=== PATIENT | female | born 1990 | race African-American/Black ===

== ENCOUNTER 2018-01-10 16:02 | Emergency (ER) | payer OTHER ==
[2018-01-10 16:10] VITALS: BP 106/54; PULSE 82; TEMP 98.3; BMI 26.9
--- NOTE | 2018-01-10 16:10 | PDOC ---
Rapid Medical Evaluation Time Seen by Provider: 01/10/18 16:08 Medical Evaluation: Allergies Allergy/AdvReac Type Severity Reaction Status Date / Time Penicillins Allergy Severe Swelling Verified 07/09/16 11:07 01/10/18 16:08 I have performed a brief in-person evaluation of this patient. The patient presents with a chief complaint of: Possible abscess to abd wall, no f/c. Currently on macrobid for uti Pertinent physical exam findings:will defer to FT provider I have ordered the following:nothing The patient will proceed to the ED for further evaluation. 01/10/18 16:10 Discharge Disposition - Diagnosis Abscess - Referrals - Patient Instructions - Post Discharge Activity
--- NOTE | 2018-01-10 16:35 | PDOC ---
History of Present Illness - General Chief Complaint: Wound Stated Complaint: ABSCESS BOIL Time Seen by Provider: 01/10/18 16:08 History Source: Patient Exam Limitations: No Limitations - History of Present Illness Initial Comments: 01/10/18 16:31 Best Contact:[phone] PCP:Dr. Haley Pmhx:N/A Pshx:C section Allergies:NKDA FH:None Social Hx: Ciarettes/ 0 Alcohol/ 0 Drugs/0 LMP:12/23/2017 27-year-old female presents to the emergency department complaining of a bump on her 2 days without fever, chills, nausea/vomiting, abdominal pains , flank pains, urinary symptoms. Patient is currently on Macrobid for her UTI. Past History - Past Medical History Allergies/Adverse Reactions: Allergies Allergy/AdvReac Type Severity Reaction Status Date / Time Penicillins Allergy Severe Swelling Verified 01/10/18 16:10 Home Medications: Ambulatory Orders Ferrous Sulfate [Feosol] 325 mg PO DAILY 07/09/16 Oxycodone HCl/Acetaminophen [Percocet 5-325 mg Tablet -] 1 tab PO Q4H #20 tablet MDD 6 07/09/16 Vit/Iron Fum/Folic AC [ Tablet] 1 tablet PO HS 07/09/16 Anemia: No Asthma: No Cancer: No Cardiac Disorders: No Diabetes: No HTN: No Seizures: No Thyroid Disease: No - Surgical History Abdominal Surgery: Yes (RT FALLOPIAN TUBE S/P ECTOPIC) - Reproductive History (#): 3 Para: 1 Ectopic : Yes (diagnosed 06/25/13) Therapeutic (s) & number: No Spontaneous : 1 - Immunization History Immunization Up to Date: Yes - Suicide/Smoking/Psychosocial Hx Smoking Status: No Smoking History: Never smoked Have you smoked in the past 12 months: No Number of Cigarettes Smoked Daily: 0 Hx Alcohol Use: No Drug/Substance Use Hx: No Substance Use Type: None Hx Substance Use Treatment: No Review of Systems - Review of Systems Able to Perform ROS?: Yes Comments:: 01/10/18 16:32 CONSTITUTIONAL: Absent: fever, chills, diaphoresis, generalized weakness, malaise, loss of appetite HEENT: Absent: rhinorrhea, nasal congestion, throat pain, throat swelling, difficulty swallowing, mouth swelling, ear pain, eye pain, visual Changes CARDIOVASCULAR: Absent: chest pain, loss of consciousness, palpitations, irregular heart rate, peripheral edema RESPIRATORY: Absent: cough, shortness of breath, dyspnea with exertion, orthopnea, wheezing, stridor, hemoptysis GASTROINTESTINAL: Slight soreness to mid c section line Absent: abdominal pain, abdominal distension, nausea, vomiting, diarrhea, constipation, melena, hematochezia GENITOURINARY: Absent: dysuria, frequency, urgency, hesitancy, hematuria, flank pain, genital pain MUSCULOSKELETAL: Absent: myalgia, arthralgia, joint swelling SKIN: Absent: rash, itching, pallor Is the patient limited Slovenian proficient: No *Physical Exam - Vital Signs Last Vital Signs Temp Pulse Resp BP Pulse Ox 98.3 F 82 20 106/54 99 01/10/18 16:08 01/10/18 16:08 01/10/18 16:08 01/10/18 16:08 01/10/18 16:08 - Physical Exam Comments: 01/10/18 16:33 GENERAL: Well developed, well nourished. Awake and alert. No acute distress. CARDIOVASCULAR: Regular rate and rhythm. No murmurs, rubs, or gallops. Distal pulses are 2+ and symmetric. PULMONARY: No evidence of respiratory distress. Lungs clear to auscultation bilaterally. No wheezing, rales or rhonchi. ABDOMINAL: 1cm induration to mid c secion region, Neg drainage/lymphangitis Soft. Non-tender. Non-distended. No rebound or guarding. No organomegaly. Normoactive bowel sounds. MUSCULOSKELETAL Normal range of motion at all joints. No bony deformities or tenderness. No CVA tenderness. EXTREMITIES: No cyanosis. No clubbing. No edema. No calf tenderness. SKIN: Warm and dry. Normal capillary refill. No rashes. No jaundice. *DC/Admit/Observation/Transfer Diagnosis at time of Disposition: Abscess - Discharge Dispostion Disposition: HOME Condition at time of disposition: Stable Decision to Admit order: No - Referrals Referrals: Jamel Hendrickson MD [Staff Physician] - - Patient Instructions Printed Discharge Instructions: DI for Skin Abscess Additional Instructions: Warm compress see a area Take Tylenol Motrin for pain Clindamycin antibiotics until completion Return back to the ER for severe/persistent or worsening symptoms - Post Discharge Activity
== END 2018-01-10 16:49 | disposition home or self-care (01) ==
LOC: JERFT 16:02
DX: L02.211 Cutaneous abscess of abdominal wall (principal)
CPT/HCPCS: 99281-25

== ENCOUNTER 2018-11-22 13:44 | Emergency (ER) | payer OTHER ==
[2018-11-22 13:54] VITALS: BP 103/56; PULSE 89; TEMP 98.2; BMI 26.2
[2018-11-22 14:16] LABS: HCG,QUALITATIVE URINE Negative
[2018-11-22 14:32] LABS: EPI CELLS 1.1 /HPF (0-5); URINE APPEARANCE CLOUDY; URINE BACTERIA 1973.5 /hpf (NEGATIVE); URINE BILIRUBIN NEGATIVE (NEGATIVE); URINE CASTS 117 /hpf (0-8); URINE COLOR YELLOW; URINE GLUCOSE (UA) NEGATIVE (NEGATIVE); URINE KETONE TRACE (NEGATIVE); URINE LEUK ESTERASE 2+ (NEGATIVE); URINE NITRITE NEGATIVE (NEGATIVE); URINE PROTEIN TRACE (NEGATIVE); URINE RBC 94 /hpf (0-4); URINE UROBILINOGEN 0.2 mg/dL (0.2-1.0); URINE WBC 163 /hpf (0-5)
--- NOTE | 2018-11-22 15:25 | PDOC ---
History of Present Illness - General Chief Complaint: Urinary Problem Stated Complaint: URINE PROBLEMS Time Seen by Provider: 11/22/18 14:18 History Source: Patient Exam Limitations: No Limitations Past History - Past Medical History Allergies/Adverse Reactions: Allergies Allergy/AdvReac Type Severity Reaction Status Date / Time Penicillins Allergy Severe Swelling Verified 03/22/18 09:22 Home Medications: Ambulatory Orders Nitrofurantoin Monohyd/M-Cryst [Macrobid -] 100 mg PO BID #14 capsule 11/22/18 Phenazopyridine HCl [Pyridium] 100 mg PO TID #6 tablet 11/22/18 Anemia: No Asthma: No Cancer: No Cardiac Disorders: No COPD: No Diabetes: No HTN: No Seizures: No Thyroid Disease: No - Surgical History Abdominal Surgery: Yes (RT FALLOPIAN TUBE S/P ECTOPIC) - Reproductive History (#): 3 Para: 1 Ectopic : Yes (diagnosed 06/25/13) Therapeutic (s) & number: No Spontaneous : 1 - Immunization History Immunization Up to Date: Yes - Suicide/Smoking/Psychosocial Hx Smoking Status: No Smoking History: Never smoked Have you smoked in the past 12 months: No Number of Cigarettes Smoked Daily: 0 Information on smoking cessation initiated: No Hx Alcohol Use: No Drug/Substance Use Hx: No Substance Use Type: None Hx Substance Use Treatment: No *Physical Exam - Vital Signs Last Vital Signs Temp Pulse Resp BP Pulse Ox 98.2 F 89 18 103/56 L 100 11/22/18 13:53 11/22/18 13:53 11/22/18 13:53 11/22/18 13:53 11/22/18 13:53 - Physical Exam Respiratory/Chest: positive: Lungs Clear, Normal Breath Sounds. negative: Respiratory Distress Cardiovascular: positive: Regular Rhythm, Regular Rate, S1, S2. negative: Murmur Gastrointestinal/Abdominal: positive: Normal Bowel Sounds, Soft. negative: Tender, Distended, Guarding, Rebound Musculoskeletal: negative: CVA Tenderness Neurologic: positive: Alert, Normal Mood/Affect ED Treatment Course - ADDITIONAL ORDERS Additional order review: Laboratory Results 11/22/18 14:00 Urine Color Yellow Urine Appearance Cloudy Urine pH 7.0 Ur Specific [place] 1.021 Urine Protein Trace Urine Glucose (UA) Negative Urine Ketones Trace H Urine Blood 2+ H Urine Nitrite Negative Urine Bilirubin Negative Urine Urobilinogen 0.2 Ur Leukocyte Esterase 2+ H Urine WBC (Auto) 163 Urine RBC (Auto) 94 Urine Casts (Auto) 117 U Pathogenic Cast Auto Wbc cast seen U Epithel Cells (Auto) 1.1 Urine Bacteria (Auto) 1973.5 Urine HCG, Qual Negative Medical Decision Making - Medical Decision Making 28 y/o F with no sig pmh presents with dysuria and increased urinary frequency today. Denies fever, chills, sob, cp, abd pain, n/v, hematuria, unusual vaginal discharge. Is sexually active with 1 partner. Mentions has had UTIs in the past UA positive for infection Prior urine culture 01/2015 notable for E.coli, which was pansensitive Patient allergic to PCN; will start on Macrobid 11/22/18 15:24 *DC/Admit/Observation/Transfer Diagnosis at time of Disposition: UTI (urinary tract infection) Qualifiers: Urinary tract infection type: acute cystitis Hematuria presence: without hematuria Qualified Code(s): N30.00 - Acute cystitis without hematuria - Discharge Dispostion Disposition: HOME Condition at time of disposition: Stable Decision to Admit order: No - Prescriptions Prescriptions: Nitrofurantoin Monohyd/M-Cryst [Macrobid -] 100 mg PO BID #14 capsule Phenazopyridine HCl [Pyridium] 100 mg PO TID #6 tablet - Referrals Referrals: Lori Carl [Primary Care Provider] - 2 Days - Patient Instructions Printed Discharge Instructions: DI for Urinary Tract Infection (UTI) Additional Instructions: Thank you for choosing [facility]. It was a pleasure taking care of you. You were started on antibiotics for urine infection Drink at least 2L of water daily You were also started on medication for bladder pain called Pyridium - this medication can cause discoloration of your urine. Follow-up with your doctor in 2-3 days Return to the Emergency Department if your symptoms worsen or persist or have other concerning symptoms. - Post Discharge Activity
== END 2018-11-22 15:46 | disposition home or self-care (01) ==
LOC: JERFT 13:44
DX: N30.00 Acute cystitis without hematuria (principal)
CPT/HCPCS: 81003; 84703; 87086; 87186; 99281-25

== ENCOUNTER 2019-03-01 23:13 | Emergency (ER) | payer OTHER ==
[2019-03-01 23:28] VITALS: BP 100/60; PULSE 68; TEMP 98.2
== END 2019-03-02 00:49 | disposition left against medical advice (07) ==
LOC: JER 23:13
DX: Z53.21 Procedure and treatment not carried out due to patient leaving prior to being seen by health care provider (principal)
CPT/HCPCS: 99281-25

== ENCOUNTER 2019-04-06 17:29 | Emergency (ER) | payer OTHER | END 2019-04-06 18:17 | disposition home or self-care (01) | LOC: JERFT 17:29 ==

== ENCOUNTER 2019-05-08 17:17 | Emergency (ER) | payer SELFPAY ==
[2019-05-08 17:24] VITALS: BP 104/61; PULSE 68; TEMP 98.1; BMI 26.5
--- NOTE | 2019-05-08 17:24 | PDOC ---
Rapid Medical Evaluation Medical Evaluation: Allergies Allergy/AdvReac Type Severity Reaction Status Date / Time Penicillins Allergy Severe Swelling Verified 03/22/18 09:22 05/08/19 17:21 Patient presents to ED with complaints of: epigastric pain x 1 month , unrelieved with prilosec, worse at night, no etoh or smoking hx patient on brief exam: epigastric tenderness, no ruq tenderness, vss Patient ordered for: labs, urine, meds Patient to proceed to the ED Discharge Disposition - Diagnosis GERD (gastroesophageal reflux disease) Qualifiers: Esophagitis presence: without esophagitis Qualified Code(s): K21.9 - Gastro- esophageal reflux disease without esophagitis - Discharge Dispostion Disposition: HOME Condition at time of disposition: Stable - Prescriptions Prescriptions: Famotidine [Pepcid -] 20 mg PO DAILY #30 tablet Pantoprazole Sodium [Protonix] 40 mg PO DAILY #30 tablet.dr - Referrals Referrals: Donnell Patterson MD [Staff Physician] - - Patient Instructions Printed Discharge Instructions: DI for Gastroesophageal Reflux Disease (GERD) Additional Instructions: Please take medications as prescribed. As discussed, pleaes follow up with the [facility] within the next week for further evaluation of your continued symptoms. If you develop any fever, chills, nausea, vomiting, diarrhea, or any new or worsening symptoms, please return to the ER immediately. - Post Discharge Activity
[2019-05-08 18:07] LABS: BASO % 1.4 % (0-2.0); EOS % 6.4 % (0-4.5); HEMATOCRIT 35.6 % (32.4-45.2); HEMOGLOBIN 11.9 GM/dL (10.7-15.3); MCH 32.8 pg (25.7-33.7); MCHC 33.3 g/dl (32.0-36.0); MEAN CELL VOLUME 98.4 fl (80-96); MEAN PLT VOLUME 9.7 fl (7.5-11.1); NEUT % 40.2 % (42.8-82.8); PLATELET COUNT 250 K/MM3 (134-434); RBC 3.62 M/mm3 (3.60-5.2); RDW 13.1 % (11.6-15.6); WHITE BLOOD COUNT 4.2 K/mm3 (4.0-10.0)
[2019-05-08 18:09] LABS: URINE APPEARANCE CLEAR; URINE BILIRUBIN NEGATIVE (NEGATIVE); URINE COLOR YELLOW; URINE GLUCOSE (UA) NEGATIVE (NEGATIVE); URINE KETONE NEGATIVE (NEGATIVE); URINE LEUK ESTERASE NEGATIVE (NEGATIVE); URINE NITRITE NEGATIVE (NEGATIVE); URINE PROTEIN NEGATIVE (NEGATIVE); URINE UROBILINOGEN 0.2 mg/dL (0.2-1.0)
[2019-05-08 18:41] LABS: ALBUMIN 3.8 g/dl (3.4-5.0); BILIRUBIN,TOTAL 0.3 mg/dL (0.2-1); BLOOD UREA NITROGEN 16.7 mg/dL (7-18); CALCIUM 8.7 mg/dL (8.5-10.1); CREATININE 0.8 mg/dL (0.55-1.3); POTASSIUM 3.9 mmol/L (3.5-5.1); TOT PROT 7.6 g/dl (6.4-8.2)
--- NOTE | 2019-05-08 19:23 | PDOC ---
History of Present Illness - General Chief Complaint: Pain Stated Complaint: EPIGASTRIC PAIN Time Seen by Provider: 05/08/19 17:24 - History of Present Illness Initial Comments: 05/08/19 19:21 CHIEF COMPLAINT: abdominal pain HISTORY OF PRESENT ILLNESS: 29 yo F with hx of GERD presents to ED with abdominal pain. Patient reports that she has had the pain for 4 months and has was taking omeprazole prescribed by her PMD for 1.5 months. She states she stopped taking it last week because it was not working. Denies any recent travel. Denies N/V/D. Reports last BM yesterday. LMP April 17. . Tried taking acidophilus. No recent travel or sick contacts. PAST MEDICAL HISTORY: Denies past medical history FAMILY HISTORY: Denies SOCIAL HISTORY: Denies tobacco, alcohol, illicit drug use. SURGICAL HISTORY: Denies ALLERGIES: PCN REVIEW OF SYSTEMS General/Constitutional: Denies fever or chills. Denies weakness, weight change. HEENT: Denies change in vision. Denies ear pain or discharge. Denies sore throat. Cardiovascular: Denies chest pain or shortness of breath. Respiratory: Denies cough, wheezing, or hemoptysis. Gastrointestinal:Abdominal pain. Denies nausea, vomiting, diarrhea or constipation. Denies rectal bleeding. Genitourinary: Denies dysuria, frequency, or change in urination. Musculoskeletal: Denies joint or muscle swelling or pain. Denies neck or back pain. Skin and breasts: Denies rash or easy bruising. Neurologic: Denies headache, vertigo, loss of consciousness, or loss of sensation. Psychiatric: Denies depression or anxiety. PHYSICAL EXAM General Appearance: Well-appearing, appropriately dressed. No apparent distress. HEENT: EOMI, PERRLA, normal ENT inspection, normal voice, TMs normal, pharynx normal. No conjunctival pallor. No photophobia, scleral icterus. Neck: Supple. Trachea midline. No tenderness, rigidity, carotid bruit, stridor , lymphadenopathy, or thyromegaly. Respiratory/Chest: Lungs CTAB. No shortness of breath, chest tenderness, respiratory distress, accessory muscle use. No crackles, rales, rhonchi, stridor , wheezing, dullness Cardiovascular: RRR. S1, S2. No JVD, murmur, bradycardia, tachycardia. Vascular Pulses: Dorsalis-Pedis (R): 2+, Dorsalis-Pedis (L): 2+ Gastrointestinal/Abdominal: Minimal epigastric tenderness. No organomegaly, pulsatile mass, hernia, hepatomegaly, splenomegaly. Musculoskeletal/Extremities: Normal inspection. FROM of all extremities, normal capillary refill. Pelvis Stable. No CVA tenderness. No tenderness to extremities, pedal edema, swelling, erythema or deformity. Integumentary: Appropriate color, dry, warm. No cyanosis, erythema, jaundice or rash Neurologic: director of placement II-XII intact. Fully oriented, alert. Appropriate mood/affect. Motor strength 5/5. No appreciable EOM palsy, facial droop or sensory deficit. Past History - Past Medical History Allergies/Adverse Reactions: Allergies Allergy/AdvReac Type Severity Reaction Status Date / Time Penicillins Allergy Severe Swelling Verified 05/08/19 17:24 Home Medications: Ambulatory Orders Nitrofurantoin Monohyd/M-Cryst [Macrobid -] 100 mg PO BID #14 capsule 11/22/18 Phenazopyridine HCl [Pyridium] 100 mg PO TID #6 tablet 11/22/18 Cyclobenzaprine HCl [Flexeril 10 mg] 10 mg PO HS PRN #10 tablet 04/06/19 Ibuprofen [Motrin -] 600 mg PO TID #30 tablet 04/06/19 Famotidine [Pepcid -] 20 mg PO DAILY #30 tablet 05/08/19 Pantoprazole Sodium [Protonix] 40 mg PO DAILY #30 tablet. 05/08/19 Anemia: No Asthma: No Cancer: No Cardiac Disorders: No COPD: No Diabetes: No HTN: No Seizures: No Thyroid Disease: No - Surgical History Abdominal Surgery: Yes (RT FALLOPIAN TUBE S/P ECTOPIC) - Reproductive History (#): 3 Para: 1 Ectopic : Yes (diagnosed 06/25/13) Therapeutic (s) & number: No Spontaneous : 1 - Immunization History Immunization Up to Date: Yes - Suicide/Smoking/Psychosocial Hx Smoking Status: No Smoking History: Never smoked Have you smoked in the past 12 months: No Number of Cigarettes Smoked Daily: 0 Information on smoking cessation initiated: No Hx Alcohol Use: No Drug/Substance Use Hx: No Substance Use Type: None Hx Substance Use Treatment: No *Physical Exam - Vital Signs Last Vital Signs Temp Pulse Resp BP Pulse Ox 98.1 F 68 18 104/61 99 05/08/19 17:22 05/08/19 17:22 05/08/19 17:22 05/08/19 17:22 05/08/19 17:22 ED Treatment Course - LABORATORY CBC & Chemistry Diagram: 05/08/19 17:49 05/08/19 17:49 - ADDITIONAL ORDERS Additional order review: Laboratory Results 05/08/19 05/08/19 05/08/19 17:49 17:49 17:49 Sodium 139 Potassium 3.9 Chloride 105 Carbon Dioxide 30 Anion Gap 3 L BUN 16.7 Creatinine 0.8 Est GFR (CKD-EPI)AfAm 116.28 Est GFR (CKD-EPI)NonAf 100.33 Random Glucose 82 Calcium 8.7 Total Bilirubin 0.3 AST 12 L ALT 24 Alkaline Phosphatase 58 Total Protein 7.6 Albumin 3.8 Lipase 198 Urine Color Yellow Urine Appearance Clear Urine pH 6.0 Ur Specific [place] 1.027 Urine Protein Negative Urine Glucose (UA) Negative Urine Ketones Negative Urine Blood Negative Urine Nitrite Negative Urine Bilirubin Negative Urine Urobilinogen 0.2 Ur Leukocyte Esterase Negative Urine HCG, Qual Negative 05/08/19 17:49 RBC 3.62 MCV 98.4 H MCHC 33.3 RDW 13.1 D MPV 9.7 Neutrophils % 40.2 L D Lymphocytes % 40.0 D Monocytes % 12.0 H Eosinophils % 6.4 H D Basophils % 1.4 Medical Decision Making - Medical Decision Making 05/09/19 01:31 29 yo F presents to ED with abdominal pain x "4 months." -labs unremarkable protonix, pepcid. f/u with GI. Advised patient to take meds as prescribed and to f/u with GI for further evaluation of chronic abd pain. Patient verbalized understanding and agrees to plan. *DC/Admit/Observation/Transfer Diagnosis at time of Disposition: GERD (gastroesophageal reflux disease) Qualifiers: Esophagitis presence: without esophagitis Qualified Code(s): K21.9 - Gastro- esophageal reflux disease without esophagitis - Discharge Dispostion Disposition: HOME Condition at time of disposition: Stable Decision to Admit order: No - Prescriptions Prescriptions: Famotidine [Pepcid -] 20 mg PO DAILY #30 tablet Pantoprazole Sodium [Protonix] 40 mg PO DAILY #30 tablet.dr - Referrals Referrals: Donnell Patterson MD [Staff Physician] - - Patient Instructions Printed Discharge Instructions: DI for Gastroesophageal Reflux Disease (GERD) Additional Instructions: Please take medications as prescribed. As discussed, pleaes follow up with the [facility] within the next week for further evaluation of your continued symptoms. If you develop any fever, chills, nausea, vomiting, diarrhea, or any new or worsening symptoms, please return to the ER immediately. - Post Discharge Activity
== END 2019-05-08 19:35 | disposition home or self-care (01) ==
LOC: JER 17:17
DX: K21.9 Gastro-esophageal reflux disease without esophagitis (principal)
CPT/HCPCS: 36415; 80053; 81003; 83690; 84703; 85025; 99282-25

== ENCOUNTER 2019-06-04 10:09 | Emergency (ER) | payer OTHER ==
[2019-06-04 10:16] VITALS: BP 105/67; PULSE 69; TEMP 98.7; BMI 25.6
[2019-06-04] MEDS ORDERED: SODIUM CHLORIDE 1,000 ML IV STA (11:37)
--- NOTE | 2019-06-04 11:37 | PDOC ---
History of Present Illness - General Chief Complaint: Pain Stated Complaint: HEADACHES/ UTI SYMPTOMS Time Seen by Provider: 06/04/19 11:11 History Source: Patient Exam Limitations: Clinical Condition - History of Present Illness Initial Comments: 06/04/19 11:50 Patient with past medical history of gastritis presented with complaint of 2- day history of epigastric abdominal pain and headache with 2 episodes of vomiting yesterday. Patient reported no vomiting today. Patient report she was on famotidine daily for gastritis but was told by her PCP to stop so she taken to blood work on her a few days which she stopped 4 days ago. Patient reports she started having epigastric pain after stopping the medication. Denies diarrhea, constipation, bloody stool, hematuria, urinary frequency or dysuria. Denies blurry vision or change in vision. Patient reported headache as frontal throbbing headache like a migraine. Denies any other symptoms Is this a multiple visit Asthma Patient?: No Timing/Duration: other (2 days) Past History - Past Medical History Allergies/Adverse Reactions: Allergies Allergy/AdvReac Type Severity Reaction Status Date / Time Penicillins Allergy Severe Swelling Verified 06/04/19 10:13 Home Medications: Ambulatory Orders Nitrofurantoin Monohyd/M-Cryst [Macrobid -] 100 mg PO BID #14 capsule 11/22/18 Phenazopyridine HCl [Pyridium] 100 mg PO TID #6 tablet 11/22/18 Cyclobenzaprine HCl [Flexeril 10 mg] 10 mg PO HS PRN #10 tablet 04/06/19 Ibuprofen [Motrin -] 600 mg PO TID #30 tablet 04/06/19 Famotidine [Pepcid -] 20 mg PO DAILY #30 tablet 05/08/19 Pantoprazole Sodium [Protonix] 40 mg PO DAILY #30 tablet. 05/08/19 Anemia: No Asthma: No Cancer: No Cardiac Disorders: No COPD: No Diabetes: No HTN: No Seizures: No Thyroid Disease: No - Surgical History Abdominal Surgery: Yes (RT FALLOPIAN TUBE S/P ECTOPIC) - Reproductive History (#): 3 Para: 1 Ectopic : Yes (diagnosed 06/25/13) Therapeutic (s) & number: No Spontaneous : 1 - Immunization History Immunization Up to Date: Yes - Psycho Social/Smoking Cessation Hx Smoking Status: No Smoking History: Never smoked Have you smoked in the past 12 months: No Number of Cigarettes Smoked Daily: 0 Information on smoking cessation initiated: No Hx Alcohol Use: No Drug/Substance Use Hx: No Substance Use Type: None Hx Substance Use Treatment: No Review of Systems - Review of Systems Able to Perform ROS?: Yes Is the patient limited Syriac proficient: No Constitutional: No: Chills, Fever, Malaise HEENTM: No: Symptoms Reported, See HPI, Eye Pain, Blurred Vision, Tearing, Recent change in vision, Double Vision, Cataracts, Ear Pain, Ocular Prothesis, Ear Discharge, Nose Pain, Nose Congestion, Tinnitus, Nose Bleeding, Hearing Loss , Throat Pain, Throat Swelling, Mouth Pain, Dental Problems, Difficulty Swallowing, Mouth Swelling, Other Respiratory: No: Symptoms reported, See HPI, Cough, Orthopnea, Shortness of Breath, SOB with Exertion, SOB at Rest, Stridor, Wheezing, Productive cough, Hemoptysis, Other Cardiac (ROS): No: Symptoms Reported, See HPI, Chest Pain, Edema, Irregular Heart Rate, Lightheadedness, Palpitations, Syncope, Chest Tightness, Other ABD/GI: Yes: Symptoms Reported, See HPI, Nausea, Vomiting, Abdominal cramping ( epigastric pain). No: Abd. Pain w/ defecation, Blood Streaked Bowels, Constipated, Diarrhea, Difficulty Swallowing, Poor Appetite, Poor Fluid Intake, Rectal Bleeding, Indigestion : No: Symptoms Reported, Burning, Dysuria, Discharge, Frequency, Urgency Integumentary: No: Symptoms Reported Neurological: Yes: Symptoms reported, Headache. No: Numbness, Paresthesia, Weakness, Dizziness All Other Systems: Reviewed and Negative *Physical Exam - Vital Signs Last Vital Signs Temp Pulse Resp BP Pulse Ox 98.7 F 69 18 105/67 99 06/04/19 10:14 06/04/19 10:14 06/04/19 10:14 06/04/19 10:14 06/04/19 10:14 - Physical Exam Comments: 06/04/19 11:47 GENERAL: Well developed, well nourished. Awake and alert. No acute distress. HEENT: Normocephalic, atraumatic. PERRLA, EOMI. No conjunctival pallor. Sclera are non- icteric. Moist mucous membranes. Oropharynx is clear. NECK: Supple. Full ROM. No JVD. No thyromegaly. No lymphadenopathy. CARDIOVASCULAR: Regular rate and rhythm. No murmurs, rubs, or gallops. Distal pulses are 2+ and symmetric. PULMONARY: No evidence of respiratory distress. Lungs clear to auscultation bilaterally. No wheezing, rales or rhonchi. ABDOMINAL: Soft. mild tenderness to epigastric region. Non-distended. No rebound or guarding. No organomegaly. Normoactive bowel sounds. MUSCULOSKELETAL Normal range of motion at all joints. No bony deformities or tenderness. No CVA tenderness. SKIN: Warm and dry. Normal capillary refill. No rashes. No jaundice. NEUROLOGICAL: Alert, awake, appropriate. Cranial nerves 2-12 intact. No deficits to light touch in face, upper extremities and lower extremities. No motor deficits in the in face, upper extremities and lower extremities. Normal speech. Gait is normal without ataxia. PSYCHIATRIC: Cooperative. Good eye contact. Appropriate mood and affect. General Appearance: Yes: Nourished, Appropriately Dressed. No: Apparent Distress ED Treatment Course - LABORATORY CBC & Chemistry Diagram: 06/04/19 11:37 06/04/19 11:37 Medical Decision Making - Medical Decision Making 06/04/19 11:51 Patient with past medical history of gastritis presented with complaint of 2- day history of epigastric abdominal pain and headache with 2 episodes of vomiting yesterday. Patient reported no vomiting today. Patient report she was on famotidine daily for gastritis but was told by her PCP to stop so she taken to blood work on her a few days which she stopped 4 days ago. Patient reports she started having epigastric pain after stopping the medication. Denies diarrhea, constipation, bloody stool, hematuria, urinary frequency or dysuria. Denies blurry vision or change in vision. Patient reported headache as frontal throbbing headache like a migraine. Denies any other symptoms Exam significant for mild tenderness to epigastric region without guarding or rebound. Normal neuro exam. Symptoms likely gastritis with migraine versus cholecystitis. CBC, CMP and lipase level ordered. Abdominal ultrasound ordered to rule out cholecystitis. IV fluid normal saline 1 L ordered for hydration. Tylenol 1 g IV ordered for pain and headache. Treat based on lab and imaging results 06/04/19 14:13 CBC CMP and lipase labs are unremarkable. Abdominal ultrasound shows Small nonobstructing gallstones with no evidence of cholecystitis. Patient feels better after IV hydration, IV Tylenol and IV Pepcid. Patient reported headache is resolved. Patient wanted to go home in stable for discharge with GI follow- up for gastritis and general surgery for gallstone. Patient stable for discharge Discharge - Discharge Information Problems reviewed: Yes Clinical Impression/Diagnosis: Gastritis Qualifiers: Gastritis type: unspecified gastritis Chronicity: chronic Gastritis bleeding: without bleeding Qualified Code(s): K29.50 - Unspecified chronic gastritis without bleeding Abdominal pain Qualifiers: Abdominal location: epigastric Qualified Code(s): R10.13 - Epigastric pain Nausea and vomiting Qualifiers: Vomiting type: unspecified Vomiting Intractability: non-intractable Qualified Code(s): R11.2 - Nausea with vomiting, unspecified Condition: Improved Disposition: HOME - Admission No - Follow up/Referral Referrals: Marissa Yadav [Primary Care Provider] - - Patient Discharge Instructions Patient Printed Discharge Instructions: DI for Gastroesophageal Reflux Disease (GERD) Additional Instructions: The blood work was normal. Your abdominal ultrasound shows small gallstones with no gallblader disease or infection which needs follow-up. Your symptoms likely caused by gastritis with gallstones. Take home famotidine medication daily as prescribed and follow-up referred to GI doctor for follow-up care for gastritis. Come back to emergency room if worsening abdominal pain with vomiting and fever. - Post Discharge Activity Work/Back to School Note: Back to Work, Back to School
[2019-06-04 11:49] LABS: BASO % 0.8 % (0-2.0); HEMATOCRIT 34.4 % (32.4-45.2); HEMOGLOBIN 11.8 GM/dL (10.7-15.3); LYMPH % 27.3 % (8-40); MCH 33.1 pg (25.7-33.7); MCHC 34.4 g/dl (32.0-36.0); MEAN CELL VOLUME 96.5 fl (80-96); MEAN PLT VOLUME 9.6 fl (7.5-11.1); MONO % 9.9 % (3.8-10.2); PLATELET COUNT 245 K/MM3 (134-434); RBC 3.57 M/mm3 (3.60-5.2); RDW 12.7 % (11.6-15.6); WHITE BLOOD COUNT 4.7 K/mm3 (4.0-10.0)
[2019-06-04] MEDS ORDERED: ACETAMINOPHEN 1000 MG/100 ML VIAL (NON FORMULARY) IVPB ONE (11:53)
[2019-06-04] MEDS ORDERED: ACETAMINOPHEN INJECTION 100 ML IVPB ONE (11:59)
[2019-06-04] MEDS ORDERED: FAMOTIDINE 20 MG/50 ML IVPB 20 MG/50 ML MG IVPB ONE ×2 (12:06→12:10)
[2019-06-04 12:36] LABS: ALBUMIN 3.8 g/dl (3.4-5.0); BILIRUBIN,TOTAL 0.4 mg/dL (0.2-1); BLOOD UREA NITROGEN 14.3 mg/dL (7-18); CALCIUM 8.3 mg/dL (8.5-10.1); CREATININE 0.7 mg/dL (0.55-1.3); POTASSIUM 3.5 mmol/L (3.5-5.1)
[2019-06-04 12:51] LABS: PH,URINE 5.5 (5.0-8.0); URINE APPEARANCE CLEAR; URINE BILIRUBIN NEGATIVE (NEGATIVE); URINE COLOR YELLOW; URINE GLUCOSE (UA) NEGATIVE (NEGATIVE); URINE KETONE 2+ (NEGATIVE); URINE LEUK ESTERASE NEGATIVE (NEGATIVE); URINE NITRITE NEGATIVE (NEGATIVE); URINE PROTEIN TRACE (NEGATIVE)
== END 2019-06-04 14:49 | disposition home or self-care (01) ==
LOC: JER 10:09
PROC: 3E0337Z Introduction of Electrolytic and Water Balance Substance into Peripheral Vein, Percutaneous Approach (ICD-10-PCS; principal; 2019-06-04)
PROC: 3E033GC Introduction of Other Therapeutic Substance into Peripheral Vein, Percutaneous Approach (ICD-10-PCS; 2019-06-04)
PROC: 3E033NZ Introduction of Analgesics, Hypnotics, Sedatives into Peripheral Vein, Percutaneous Approach (ICD-10-PCS; 2019-06-04)
DX: K29.50 Unspecified chronic gastritis without bleeding (principal); K80.20 Calculus of gallbladder without cholecystitis without obstruction; Z88.0 Allergy status to penicillin
CPT/HCPCS: 36415; 76705-TC; 80053; 81003; 83690; 84703; 85025; 87086; 96361; 96365; 96375; 99281-25; J0131; J7030

== ENCOUNTER 2019-09-27 08:35 | Emergency (ER) | payer OTHER ==
[2019-09-27 08:51] VITALS: BMI 26.9
[2019-09-27] MEDS ORDERED: IBUPROFEN 400 MG TABLET (FP) PO ONE ×2 (09:46→09:56)
--- NOTE | 2019-09-27 10:05 | PDOC ---
History of Present Illness - General Chief Complaint: Cold Symptoms Stated Complaint: COLD SYMPTOMS Time Seen by Provider: 09/27/19 09:22 History Source: Patient - History of Present Illness Timing/Duration: reports: yesterday Past History - Past Medical History Allergies/Adverse Reactions: Allergies Allergy/AdvReac Type Severity Reaction Status Date / Time Penicillins Allergy Severe Swelling Verified 09/27/19 08:48 Home Medications: Ambulatory Orders Nitrofurantoin Monohyd/M-Cryst [Macrobid -] 100 mg PO BID #14 capsule 11/22/18 Phenazopyridine HCl [Pyridium] 100 mg PO TID #6 tablet 11/22/18 Cyclobenzaprine HCl [Flexeril 10 mg] 10 mg PO HS PRN #10 tablet 04/06/19 Ibuprofen [Motrin -] 600 mg PO TID #30 tablet 04/06/19 Famotidine [Pepcid -] 20 mg PO DAILY #30 tablet 05/08/19 Pantoprazole Sodium [Protonix] 40 mg PO DAILY #30 tablet. 05/08/19 Anemia: No Asthma: No Cancer: No Cardiac Disorders: No COPD: No Diabetes: No HTN: No Seizures: No Thyroid Disease: No - Surgical History Abdominal Surgery: Yes (RT FALLOPIAN TUBE S/P ECTOPIC) - Reproductive History (#): 3 Para: 1 Ectopic : Yes (diagnosed 06/25/13) Therapeutic (s) & number: No Spontaneous : 1 - Immunization History Immunization Up to Date: Yes - Psycho Social/Smoking Cessation Hx Smoking Status: No Smoking History: Never smoked Have you smoked in the past 12 months: No Number of Cigarettes Smoked Daily: 0 Hx Alcohol Use: No Drug/Substance Use Hx: No Substance Use Type: None Hx Substance Use Treatment: No Review of Systems - Review of Systems Constitutional: Yes: Chills, Malaise Respiratory: No: Cough, Shortness of Breath ABD/GI: No: Blood Streaked Bowels, Diarrhea, Nausea, Vomiting, Abdominal cramping : No: Dysuria Musculoskeletal: Yes: Back Pain Neurological: Yes: Headache *Physical Exam - Vital Signs Last Vital Signs Temp Pulse Resp BP Pulse Ox 99.7 F H 105 H 18 100/60 99 09/27/19 08:48 09/27/19 08:48 09/27/19 08:48 09/27/19 08:48 09/27/19 08:48 - Physical Exam General Appearance: Yes: Appropriately Dressed. No: Apparent Distress HEENT: positive: Normal ENT Inspection, Normal Voice, TMs Normal, Pharynx Normal. negative: Scleral Icterus (R), Scleral Icterus (L) Neck: positive: Supple Respiratory/Chest: negative: Respiratory Distress Gastrointestinal/Abdominal: positive: Soft. negative: Tender Integumentary: positive: Dry, Warm Neurologic: positive: Fully Oriented, Alert, Normal Mood/Affect Medical Decision Making - Medical Decision Making 09/27/19 09:54 29-year-old female, no significant history, here with generalized body pain including lower back with malaise and chills x2 days. No cough, sore throat, ear pain, abdominal pain, change in bowel movement, dysuria, nausea or vomiting. see exam Possible viral illness, r/o flu, pyelo considered given ? L CVAT -Dose of motrin for pain/low grade fever -flu swab -ua/cx 09/27/19 10:50 Flu and strep neg. Improved w/ meds. Dc w/ supportive tx Discharge - Discharge Information Problems reviewed: Yes Clinical Impression/Diagnosis: Viral syndrome Condition: Improved Disposition: HOME - Follow up/Referral - Patient Discharge Instructions Patient Printed Discharge Instructions: DI for Viral Syndrome Additional Instructions: Flu and urine test were negative Rest drink plenty fluids and take Motrin or Tylenol for pain and or fever - Post Discharge Activity Work/Back to School Note: Back to Work
[2019-09-27 10:38] LABS: URINE APPEARANCE CLOUDY; URINE BILIRUBIN NEGATIVE (NEGATIVE); URINE COLOR YELLOW; URINE GLUCOSE (UA) NEGATIVE (NEGATIVE); URINE KETONE 1+ (NEGATIVE); URINE LEUK ESTERASE NEGATIVE (NEGATIVE); URINE NITRITE NEGATIVE (NEGATIVE); URINE PROTEIN TRACE (NEGATIVE)
[2019-09-27 10:53] VITALS: BP 108/70; PULSE 97; TEMP 99.1
== END 2019-09-27 10:53 | disposition home or self-care (01) ==
LOC: JERFT 08:35
DX: B34.9 Viral infection, unspecified (principal); Z88.0 Allergy status to penicillin
CPT/HCPCS: 81003; 87086; 87804; 99283-25

== ENCOUNTER 2019-10-29 10:03 | Emergency (ER) | payer OTHER ==
[2019-10-29 10:25] VITALS: BP 109/62; PULSE 75; TEMP 98.6; BMI 26.6
[2019-10-29] MEDS ORDERED: PANTOPRAZOLE SODIUM 40 MG VIAL IVPUSH ONE (10:56)
[2019-10-29] MEDS ORDERED: SODIUM CHLORIDE 1,000 ML IV STA (10:57)
[2019-10-29] MEDS ORDERED: PANTOPRAZOLE SODIUM 40 MG/100 ML BAG IVPB ONE (11:18)
--- NOTE | 2019-10-29 12:15 | PDOC ---
History of Present Illness - General Chief Complaint: Pain Stated Complaint: UPPER ABD PAIN Time Seen by Provider: 10/29/19 10:44 History Source: Patient Exam Limitations: No Limitations - History of Present Illness Travel History: No Initial Comments: 10/29/19 11:06 29-year-old female approximately 5-6 weeks presents the ED with complaints of epigastric pain which she describes a gnawing sensation associated with intermittent nausea 2 days ago. Patient states has had similar symptoms in the past which she received an endoscopy for stating negative results. Patient states she is concerned that this may be her gallbladder as she states after she eats the nausea increases especially with fatty greasy food. Patient denies fever, chills, urinary complaints, diarrhea, chest pain or shortness of breath. Timing/Duration: reports: getting worse, intermittent Quality: reports: mild, burning, sharpness Abdominal Pain Onset Location: reports: epigastric Pain Radiation: reports: no radiation Activities at Onset: reports: none Aggravating Factors: improves with: Eating Alleviating Factors: improves with: None Past History - Travel Traveled outside of the country in the last 30 days: No Close contact w/someone who was outside of country & ill: No - Past Medical History Allergies/Adverse Reactions: Allergies Allergy/AdvReac Type Severity Reaction Status Date / Time Penicillins Allergy Severe Swelling Verified 09/27/19 08:48 Home Medications: Ambulatory Orders Pnv No.95/Ferrous Fum/Folic AC [ Formula] 1 each PO DAILY 10/29/19 Anemia: No Asthma: No Cancer: No Cardiac Disorders: No COPD: No Diabetes: No HTN: No Seizures: No Thyroid Disease: No - Surgical History Abdominal Surgery: Yes (RT FALLOPIAN TUBE S/P ECTOPIC) - Reproductive History (#): 3 Para: 1 Ectopic : Yes (diagnosed 06/25/13) Therapeutic (s) & number: No Spontaneous : 1 - Immunization History Immunization Up to Date: Yes - Psycho Social/Smoking Cessation Hx Smoking Status: No Smoking History: Never smoked Have you smoked in the past 12 months: No Number of Cigarettes Smoked Daily: 0 Information on smoking cessation initiated: No Hx Alcohol Use: No Drug/Substance Use Hx: No Substance Use Type: None Hx Substance Use Treatment: No Patient Lives Alone: No Lives with/in: spouse/SO Review of Systems - Review of Systems Able to Perform ROS?: No Constitutional: No: Symptoms Reported HEENTM: No: Symptoms Reported Respiratory: No: Symptoms reported Cardiac (ROS): No: Symptoms Reported ABD/GI: Yes: Nausea, Indigestion, Abdominal cramping : No: Symptoms Reported Musculoskeletal: No: Symptoms Reported Integumentary: No: Symptoms Reported Neurological: No: Symptoms reported Endocrine: No: Symptoms Reported Hematologic/Lymphatic: No: Symptoms Reported *Physical Exam - Vital Signs Last Vital Signs Temp Pulse Resp BP Pulse Ox 98.6 F 75 18 109/62 100 10/29/19 10:23 10/29/19 10:23 10/29/19 10:23 10/29/19 10:23 10/29/19 10:23 - Physical Exam General Appearance: Yes: Nourished, Appropriately Dressed. No: Apparent Distress HEENT: negative: Pale Conjunctivae Neck: positive: Supple Respiratory/Chest: positive: Lungs Clear, Normal Breath Sounds. negative: Respiratory Distress, Accessory Muscle Use Cardiovascular: positive: Regular Rhythm, Regular Rate. negative: Murmur Gastrointestinal/Abdominal: positive: Normal Bowel Sounds, Soft, Tenderness (Epigastric). negative: Distended, Guarding Extremity: positive: Normal Range of Motion Integumentary: positive: Normal Color, Warm, Moist Neurologic: positive: Motor Strength 5/5 (Ambulatory) ED Treatment Course - LABORATORY CBC & Chemistry Diagram: 10/29/19 12:00 10/29/19 12:00 Medical Decision Making - Medical Decision Making 10/29/19 12:06 Chief complaint: Nausea epigastric pain for the past 2 days. Patient is about 5 to 6 weeks . Patient denies history of GERD or history of gallstones/GI Exam: Epigastric tenderness on exam otherwise normal physical exam. Plan: Urinalysis urine culture IV Protonix, IV fluids CBC comp and lipase ordered 10/29/19 13:20 Laboratory Tests 10/29/19 10/29/19 10/29/19 12:00 12:00 12:00 WBC 3.6 L Hgb 12.3 Hct 36.6 MCV 96.4 H Monocytes % 11.4 H Eosinophils % 4.9 H Sodium 138 Potassium 3.3 L Chloride 106 Carbon Dioxide 26 Anion Gap 7 L BUN 11.4 Creatinine 0.7 Random Glucose 70 L Calcium 8.8 Magnesium 2.1 Total Bilirubin 0.4 AST 15 ALT 34 Alkaline Phosphatase 54 Total Protein 7.9 Albumin 3.8 Lipase 128 Urine Protein Negative Urine Glucose (UA) Negative Urine Ketones Negative Urine Blood Negative Urine Nitrite Negative Ur Leukocyte Esterase Negative Patient requesting to drink. Patient given 2 containers of orange juice secondary to low potassium and glucose of 70. Patient states feeling much better and requesting to be discharged. Discharge - Discharge Information Problems reviewed: Yes Clinical Impression/Diagnosis: Epigastric pain, Vomiting of Condition: Improved Disposition: HOME - Follow up/Referral Referrals: Poonam Jean Baptiste [Primary Care Provider] - Luana Ortega MD [Staff Physician] - - Patient Discharge Instructions Patient Printed Discharge Instructions: Sandie May Improve Nausea Symptoms in Additional Instructions: Eat small frequent meals containing proper nutrition including potassium, magnesium, protein and vitamins Follow-up with your INFORMATION TECH as scheduled . otherwise return to emergency room if your symptoms worsen - Post Discharge Activity
[2019-10-29 12:29] LABS: BASO % 0.8 % (0-2.0); EOS % 4.9 % (0-4.5); HEMATOCRIT 36.6 % (32.4-45.2); HEMOGLOBIN 12.3 GM/dL (10.7-15.3); LYMPH % 36.7 % (8-40); MCH 32.5 pg (25.7-33.7); MCHC 33.7 g/dl (32.0-36.0); MEAN CELL VOLUME 96.4 fl (80-96); MEAN PLT VOLUME 9.8 fl (7.5-11.1); MONO % 11.4 % (3.8-10.2); NEUT % 46.2 % (42.8-82.8); PLATELET COUNT 243 K/MM3 (134-434); RBC 3.79 M/mm3 (3.60-5.2); RDW 13.1 % (11.6-15.6); WHITE BLOOD COUNT 3.6 K/mm3 (4.0-10.0)
[2019-10-29 12:44] LABS: PH,URINE 5.5 (5.0-8.0); URINE APPEARANCE CLEAR; URINE BILIRUBIN NEGATIVE (NEGATIVE); URINE COLOR YELLOW; URINE GLUCOSE (UA) NEGATIVE (NEGATIVE); URINE KETONE NEGATIVE (NEGATIVE); URINE LEUK ESTERASE NEGATIVE (NEGATIVE); URINE NITRITE NEGATIVE (NEGATIVE); URINE PROTEIN NEGATIVE (NEGATIVE); URINE UROBILINOGEN 0.2 mg/dL (0.2-1.0)
[2019-10-29 13:01] LABS: ALBUMIN 3.8 g/dl (3.4-5.0); BILIRUBIN,TOTAL 0.4 mg/dL (0.2-1); BLOOD UREA NITROGEN 11.4 mg/dL (7-18); CALCIUM 8.8 mg/dL (8.5-10.1); CREATININE 0.7 mg/dL (0.55-1.3); MAGNESIUM 2.1 mg/dL (1.8-2.4); POTASSIUM 3.3 mmol/L (3.5-5.1); TOT PROT 7.9 g/dl (6.4-8.2)
== END 2019-10-29 14:21 | disposition home or self-care (01) ==
LOC: JER 10:03
PROC: 3E033GC Introduction of Other Therapeutic Substance into Peripheral Vein, Percutaneous Approach (ICD-10-PCS; principal; 2019-10-29)
DX: O26.891 Other specified pregnancy related conditions, first trimester (principal); O21.9 Vomiting of pregnancy, unspecified; Z3A.01 Less than 8 weeks gestation of pregnancy
CPT/HCPCS: 36415; 80053; 81003; 83690; 83735; 85025; 87086; 96374; 99284-25; J7030

== ENCOUNTER 2020-02-13 06:46 | Day surgery (SDC) | payer OTHER ==
[2020-02-12 14:10] VITALS: BMI 25.7
[2020-02-13] MEDS ORDERED: ROCURONIUM BROMIDE 50 MG/5 ML SYRINGE ONE (07:21)
[2020-02-13] MEDS ORDERED: SUCCINYLCHOLINE CHLORIDE 200 MG/10 ML SYRINGE ONE (07:21)
[2020-02-13] MEDS ORDERED: PROPOFOL 20 ML ONE ×2 (07:21)
[2020-02-13] MEDS ORDERED: EPHEDRINE SULFATE/0.9% NACL/PF 50 MG/10 ML SYRINGE NR ONE (07:21)
[2020-02-13] MEDS ORDERED: DEXAMETHASONE SOD PHOSPHATE 4 MG/1 ML VIAL ONE (07:21)
[2020-02-13] MEDS ORDERED: BUPIVACAINE HCL 50 ML ONE (07:24)
[2020-02-13] MEDS ORDERED: fentaNYL CITRATE 250 MCG/5 ML VIAL ONE (07:24)
[2020-02-13] MEDS ORDERED: ONDANSETRON 4 MG/2 ML VIAL IVPUSH PRN (07:39)
[2020-02-13 07:40] LABS: HEMATOCRIT 27.3 % (32.4-45.2); HEMOGLOBIN 9.3 GM/dL (10.7-15.3); MCH 33.4 pg (25.7-33.7); MCHC 34.2 g/dl (32.0-36.0); MEAN CELL VOLUME 97.7 fl (80-96); MEAN PLT VOLUME 9.1 fl (7.5-11.1); PLATELET COUNT 241 K/MM3 (134-434); RDW 13.8 % (11.6-15.6); WHITE BLOOD COUNT 6.5 K/mm3 (4.0-10.0)
[2020-02-13] MEDS ORDERED: HYDROmorphone HCl 2 MG/ML VIAL IVPUSH PRN ×2 (07:40)
[2020-02-13 07:44] LABS: INR 0.97 (0.83-1.09); PROTHROMBIN TIME (PATIENT) 11.4 SEC (9.7-13.0)
[2020-02-13] MEDS ORDERED: LACTATED RINGERS SOLUTION 1,000 ML IV SCH (07:45)
[2020-02-13 07:47] LABS: ACTIVATED PTT 30.6 SECONDS (25.2-36.5)
[2020-02-13 08:02] LABS: ALBUMIN 2.9 g/dl (3.4-5.0); BILIRUBIN,TOTAL 0.3 mg/dL (0.2-1); BLOOD UREA NITROGEN 10.4 mg/dL (7-18); CALCIUM 8.4 mg/dL (8.5-10.1); CREATININE 0.6 mg/dL (0.55-1.3); POTASSIUM 3.5 mmol/L (3.5-5.1); TOT PROT 6.4 g/dl (6.4-8.2)
[2020-02-13] MEDS ORDERED: BUPIVACAINE HCL/PF 0.5% (5 MG/ML) 30 ML VIAL IJ ONE ×2 (08:07)
[2020-02-13] MEDS ORDERED: CLINDAMYCIN PHOSPHATE 600 MG/4 ML VIAL ONE (08:31)
[2020-02-13] MEDS ORDERED: CLINDAMYCIN 600 MG PREMIX BAG IVPB ONE (08:41)
[2020-02-13] MEDS ORDERED: ACETAMINOPHEN INJECTION 100 ML IVPB ONE (08:49)
[2020-02-13] MEDS ORDERED: NEOSTIGMINE METHYLSULFATE 0.5 MG/ML - 10 ML MDV ONE (09:36)
[2020-02-13] MEDS ORDERED: GLYCOPYRROLATE 0.2 MG/1 ML VIAL ONE (09:36)
[2020-02-13] MEDS ORDERED: HYDROmorphone HCl 2 MG/ML VIAL ONE (11:03)
[2020-02-13 17:14] VITALS: BP 96/55; PULSE 76; TEMP 97.3
== END 2020-02-13 17:10 | disposition home or self-care (01) ==
LOC: JASU-SURG 06:46
PROVIDERS: ATTEND Surgery
PROC: 0FT44ZZ Resection of Gallbladder, Percutaneous Endoscopic Approach (ICD-10-PCS; principal; 2020-02-13 08:00)
DX: O99.612 Diseases of the digestive system complicating pregnancy, second trimester (principal); K80.10 Calculus of gallbladder with chronic cholecystitis without obstruction; Z3A.19 19 weeks gestation of pregnancy
CPT/HCPCS: 36415; 80053; 85027; 85610; 85730; 86850; 86900; 86901; 88304-TC; 94760; J0131

== ENCOUNTER 2020-06-22 12:00 | Inpatient (IN) | payer OTHER ==
[2020-07-02] MEDS ORDERED: PROMETHAZINE HCL 25 MG/1 ML VIAL IVPB ONE (08:51)
[2020-07-02] MEDS ORDERED: CITRIC ACID/SODIUM CITRATE 30 ML UNIT-DOSE CUP PO ONE (08:51)
[2020-07-02] MEDS ORDERED: WITCH HAZEL 50% (TUCKS) 40 PAD/JAR PAD TP PRN (08:52)
[2020-07-02] MEDS ORDERED: METHYLERGONOVINE MALEATE 0.2 MG/1 ML AMP IM PRN (08:52)
[2020-07-02] MEDS ORDERED: BENZOCAINE 28 GM HEMORRHOIDAL OINTMENT TP PRN (08:52)
[2020-07-02] MEDS ORDERED: BENZOCAINE 20% 57 GM BOTTLE TP PRN (08:52)
[2020-07-02] MEDS ORDERED: oxyCODONE HCL 5 MG TABLET PO PRN (08:52)
[2020-07-02] MEDS ORDERED: ELECTROLYTE-148 SOLN 1,000 ML IV SCH (09:00)
[2020-07-02 09:53] VITALS: BMI 28.0
[2020-07-02] MEDS ORDERED: morphine SULFATE/PF 0.5 MG/ML (2cc Syringe - QUVA) ONE (10:34)
[2020-07-02] MEDS ORDERED: ePHEDrine SULFATE 50 MG/1 ML AMPULE ONE (11:20)
[2020-07-02] MEDS ORDERED: GENTAMICIN SO4 80 MG/2 ML VIAL ONE (11:20)
[2020-07-02] MEDS ORDERED: MIDAZOLAM HCL 2 MG/2 ML SINGLE DOSE VIAL ONE (11:45)
[2020-07-02 12:19] LABS: CORD BASE EXCESS -3.2 mmol/L (0-2); CORD HCO3 22.9 mmHg (20-29); CORD PCO2 45.2 mmHg (30-78); CORD pH 7.323 (7.14-7.44)
[2020-07-02] MEDS: OXYTOCIN 20 UNITS in 0.9% NS 20 UNIT/1,000 ML INFUS.BAG IV SCH (12:25)
[2020-07-02 12:27] LABS: CORD HCO3 23.7 mmHg (20-29); CORD pH 7.303 (7.14-7.44)
[2020-07-02] MEDS ORDERED: morphine SULFATE/PF 0.5 MG/ML (2cc Syringe - QUVA) EP ONE (12:28)
[2020-07-02] MEDS ORDERED: ONDANSETRON 4 MG/2 ML VIAL IVPUSH PRN (12:28)
[2020-07-02] MEDS: PRENATAL VITAMINS W/ FOLIC ACID TABLET (FP) PO SCH (13:16)
[2020-07-02] MEDS ORDERED: OXYTOCIN 20 UNITS in 0.9% NS 20 UNIT/1,000 ML INFUS.BAG IV ONE (13:38)
[2020-07-02] MEDS: IBUPROFEN 800 MG/8 ML IJ IVPB PRN (18:18)
[2020-07-03] MEDS: IBUPROFEN 800 MG/8 ML IJ IVPB PRN (04:51)
[2020-07-03 08:38] LABS: BASO % 0.5 % (0-2.0); LYMPH % 7.7 % (8-40); MCH 31.6 pg (25.7-33.7); MCHC 33.2 g/dl (32.0-36.0); MEAN CELL VOLUME 95.3 fl (80-96); MEAN PLT VOLUME 9.7 fl (7.5-11.1); MONO % 11.1 % (3.8-10.2); NEUT % 77.7 % (42.8-82.8); PLATELET COUNT 136 K/MM3 (134-434); RBC 2.83 M/mm3 (3.60-5.2); RDW 20.3 % (11.6-15.6); WHITE BLOOD COUNT 8.9 K/mm3 (4.0-10.0)
[2020-07-03] MEDS ORDERED: BISACODYL 10 MG SUPP.RECT RC PRN (08:52)
[2020-07-03] MEDS: PRENATAL VITAMINS W/ FOLIC ACID TABLET (FP) PO SCH (10:43)
[2020-07-03] MEDS: oxyCODONE HCL 5 MG TABLET PO PRN ×2 (11:01→17:06)
[2020-07-03] MEDS: FERROUS SO4 325 MG TABLET (FP) PO SCH (17:05)
[2020-07-03] MEDS: SIMETHICONE 80 MG TAB.CHEW (FP) PO PRN ×2 (17:07→21:41)
[2020-07-03] MEDS: SENNOSIDES/DOCUSATE COMBO (SENNA PLUS) TABLET (UD) PO PRN (21:41)
[2020-07-03] MEDS: IBUPROFEN 600 MG TABLET (FP) PO PRN (21:44)
[2020-07-03] MEDS: ACETAMINOPHEN 325 MG TABLET (FP) PO PRN (21:44)
[2020-07-04] MEDS: SIMETHICONE 80 MG TAB.CHEW (FP) PO PRN ×3 (08:07→20:59)
[2020-07-04] MEDS: IBUPROFEN 600 MG TABLET (FP) PO PRN ×3 (08:07→20:57)
[2020-07-04] MEDS: FERROUS SO4 325 MG TABLET (FP) PO SCH ×2 (08:08→17:30)
[2020-07-04] MEDS: ACETAMINOPHEN 325 MG TABLET (FP) PO PRN ×3 (08:08→20:58)
[2020-07-04] MEDS: PRENATAL VITAMINS W/ FOLIC ACID TABLET (FP) PO SCH (09:03)
[2020-07-04] MEDS: SENNOSIDES/DOCUSATE COMBO (SENNA PLUS) TABLET (UD) PO PRN (20:59)
[2020-07-04] MEDS: OXYTOCIN 20 UNITS in 0.9% NS 20 UNIT/1,000 ML INFUS.BAG IV SCH (22:12)
[2020-07-05 07:44] LABS: BASO % 0.5 % (0-2.0); EOS % 4.8 % (0-4.5); HEMATOCRIT 25.4 % (32.4-45.2); HEMOGLOBIN 8.3 GM/dL (10.7-15.3); LYMPH % 16.4 % (8-40); MCH 31.7 pg (25.7-33.7); MCHC 32.8 g/dl (32.0-36.0); MEAN CELL VOLUME 96.7 fl (80-96); MEAN PLT VOLUME 9.2 fl (7.5-11.1); NEUT % 70.3 % (42.8-82.8); PLATELET COUNT 190 K/MM3 (134-434); RBC 2.62 M/mm3 (3.60-5.2); RDW 20.4 % (11.6-15.6); WHITE BLOOD COUNT 7.3 K/mm3 (4.0-10.0)
[2020-07-05 08:57] VITALS: BP 112/72; PULSE 63; TEMP 98.8
[2020-07-05] MEDS: FERROUS SO4 325 MG TABLET (FP) PO SCH (09:40)
[2020-07-05] MEDS: IBUPROFEN 600 MG TABLET (FP) PO PRN ×2 (09:40→14:31)
[2020-07-05] MEDS: PRENATAL VITAMINS W/ FOLIC ACID TABLET (FP) PO SCH (09:40)
[2020-07-05] MEDS: SIMETHICONE 80 MG TAB.CHEW (FP) PO PRN ×2 (09:41→14:33)
[2020-07-05] MEDS: ACETAMINOPHEN 325 MG TABLET (FP) PO PRN ×2 (09:41→14:31)
== END 2020-07-05 15:10 | disposition home or self-care (01) | DRG 540 ==
LOC: JLDR 07-02 08:43 → J3W 07-02 13:48
PROVIDERS: ADMIT Obstetrics & Gynecology; ATTEND Obstetrics & Gynecology
PROC: 10D00Z1 Extraction of Products of Conception, Low, Open Approach (ICD-10-PCS; principal; 2020-07-02)
DX: O34.219 Maternal care for unspecified type scar from previous cesarean delivery (principal); Z37.0 Single live birth; Z3A.39 39 weeks gestation of pregnancy; Z90.49 Acquired absence of other specified parts of digestive tract; Z88.0 Allergy status to penicillin
CPT/HCPCS: 36415; 36600; 82803; 85025; 88307-TC

== ENCOUNTER 2021-11-01 09:23 | Emergency (ER) | payer OTHER ==
[2021-11-01 09:46] VITALS: BP 98/66; PULSE 87; TEMP 97.7; BMI 28.5
[2021-11-01 13:32] LABS: URINE APPEARANCE CLEAR; URINE BILIRUBIN NEGATIVE (NEGATIVE); URINE COLOR YELLOW; URINE GLUCOSE (UA) NEGATIVE (NEGATIVE); URINE KETONE NEGATIVE (NEGATIVE); URINE LEUK ESTERASE NEGATIVE (NEGATIVE); URINE NITRITE NEGATIVE (NEGATIVE); URINE PROTEIN NEGATIVE (NEGATIVE); URINE UROBILINOGEN 0.2 mg/dL (0.2-1.0)
[2021-11-02 10:07] LABS: SARS-CoV-2 NAA Not Detected (Not Detected)
== END 2021-11-01 13:53 | disposition home or self-care (01) ==
LOC: JERFT 09:23
DX: J02.9 Acute pharyngitis, unspecified (principal); R35.0 Frequency of micturition
CPT/HCPCS: 81003; 84703; 87086; 87651; 99283-25; C9803; U0003; U0005

== ENCOUNTER 2021-12-06 17:00 | Emergency (ER) | payer OTHER ==
[2021-12-06 17:42] VITALS: BP 112/72; PULSE 66; TEMP 98.1; BMI 28.5
[2021-12-06] MEDS ORDERED: FLUORESCEIN NA 1 EA STRIP ONE (18:50)
== END 2021-12-06 21:21 | disposition home or self-care (01) ==
LOC: JER 17:00 → JERFT 17:00
DX: S05.11XA Contusion of eyeball and orbital tissues, right eye, initial encounter (principal); W50.0XXA Accidental hit or strike by another person, initial encounter
CPT/HCPCS: 99283-25

== ENCOUNTER 2021-12-19 16:53 | Emergency (ER) | payer OTHER ==
[2021-12-19 17:15] VITALS: BP 107/69; PULSE 86; TEMP 98.6; BMI 28.0
[2021-12-19 17:34] LABS: EPI CELLS 31 /uL (0-25.1); HYALINE CASTS 17 /uL (0-3.1); PH,URINE 6.5 (5.0-8.0); URINE APPEARANCE TURBID; URINE BACTERIA 165 /uL (0-1359); URINE BILIRUBIN NEGATIVE (NEGATIVE); URINE COLOR ORANGE; URINE GLUCOSE (UA) NEGATIVE (NEGATIVE); URINE KETONE TRACE (NEGATIVE); URINE LEUK ESTERASE 2+ (NEGATIVE); URINE NITRITE NEGATIVE (NEGATIVE); URINE PROTEIN 2+ (NEGATIVE); URINE RBC 22000 /uL (0-23.9); URINE WBC 2793 /uL (0-25.8)
== END 2021-12-19 18:20 | disposition home or self-care (01) ==
LOC: JERFT 16:53
DX: N39.0 Urinary tract infection, site not specified (principal); M62.830 Muscle spasm of back; H15.89 Other disorders of sclera
CPT/HCPCS: 81003; 84703; 87086; 99283-25

== ENCOUNTER 2022-03-29 15:06 | Emergency (ER) | payer OTHER ==
[2022-03-29 15:27] VITALS: BP 104/62; PULSE 85; RESP 18; TEMP 98.2; BMI 28.1
[2022-03-29 18:15] LABS: URINE APPEARANCE CLEAR; URINE BILIRUBIN NEGATIVE (NEGATIVE); URINE COLOR YELLOW; URINE GLUCOSE (UA) NEGATIVE (NEGATIVE); URINE KETONE NEGATIVE (NEGATIVE)
[2022-03-29 18:16] LABS: PH,URINE 7.5 (5.0-8.0); URINE LEUK ESTERASE TRACE (NEGATIVE); URINE NITRITE NEGATIVE (NEGATIVE); URINE PROTEIN TRACE (NEGATIVE)
== END 2022-03-29 20:05 | disposition left against medical advice (07) ==
LOC: JER 15:06
DX: M54.50 Low back pain, unspecified (principal)
CPT/HCPCS: 36415; 81003; 87086; 87491; 87591; 99283-25

== ENCOUNTER 2022-10-22 10:16 | Emergency (ER) | payer OTHER ==
[2022-10-22 11:06] LABS: HCG,QUALITATIVE URINE Positive
[2022-10-22 11:13] LABS: EPITHELIAL CELLS MANY /hpf
[2022-10-22 11:16] VITALS: BP 104/78; PULSE 77; RESP 20; TEMP 98.3; BMI 27.3
== END 2022-10-22 11:38 | disposition home or self-care (01) ==
LOC: FER 10:16
DX: Z32.01 Encounter for pregnancy test, result positive (principal)
CPT/HCPCS: 81003; 81015; 84703; 87086; 87186; 99283-25

== ENCOUNTER 2022-11-13 22:55 | Emergency (ER) | payer OTHER ==
[2022-11-13] MEDS ORDERED: ONDANSETRON *ODT* 4 MG TABLET SL ONE (23:12)
[2022-11-13 23:15] VITALS: BP 112/72; PULSE 86; RESP 17; TEMP 99; BMI 28.7
[2022-11-13] MEDS ORDERED: ONDANSETRON *ODT* 4 MG TABLET ONE (23:15)
== END 2022-11-13 23:31 | disposition home or self-care (01) ==
LOC: FER 22:55
DX: R11.2 Nausea with vomiting, unspecified (principal)
CPT/HCPCS: 99283-25; Q0162

== ENCOUNTER 2023-03-03 13:22 | Emergency (ER) | payer OTHER ==
[2023-03-03 13:26] VITALS: BP 109/77; PULSE 72; RESP 18; TEMP 98.6; BMI 28.5
== END 2023-03-03 14:15 | disposition home or self-care (01) ==
LOC: FER 13:22
DX: M54.50 Low back pain, unspecified (principal); J02.9 Acute pharyngitis, unspecified; N76.0 Acute vaginitis
CPT/HCPCS: 81003; 84703; 99283-25

== ENCOUNTER 2023-06-04 16:21 | Emergency (ER) | payer OTHER ==
[2023-06-04 16:37] VITALS: BP 106/65; PULSE 69; RESP 17; TEMP 98.8; BMI 29.2
[2023-06-04 16:52] LABS: HCG,QUALITATIVE URINE Negative
== END 2023-06-04 17:16 | disposition home or self-care (01) ==
LOC: FER 16:21
DX: M54.50 Low back pain, unspecified (principal); N89.8 Other specified noninflammatory disorders of vagina
CPT/HCPCS: 81003; 84703; 99283-25

== ENCOUNTER 2023-07-17 17:57 | Emergency (ER) | payer OTHER ==
[2023-07-17 18:23] VITALS: BP 118/70; PULSE 77; RESP 15; TEMP 98.2; BMI 29.0
[2023-07-17 18:28] LABS: HCG,QUALITATIVE URINE Negative
== END 2023-07-17 18:38 | disposition home or self-care (01) ==
LOC: FER 17:57
DX: N39.0 Urinary tract infection, site not specified (principal); R35.0 Frequency of micturition
CPT/HCPCS: 81003; 84703; 87086; 87186; 99283-25

== ENCOUNTER 2023-07-24 09:18 | Emergency (ER) | payer OTHER ==
[2023-07-24 09:25] VITALS: BP 109/81; PULSE 98; RESP 18; TEMP 98.1; BMI 29.8
[2023-07-24] MEDS ORDERED: ONDANSETRON 4 MG/2 ML VIAL IVPUSH ONE (09:40)
[2023-07-24] MEDS ORDERED: FAMOTIDINE 20 MG/50 ML IVPB 20 MG/50 ML MG IVPB ONE ×2 (09:40→09:50)
[2023-07-24] MEDS ORDERED: MAG HYDROX/AL HYDROX/SIMETH 30 ML UNIT-DOSE CUP PO ONE (09:40)
[2023-07-24] MEDS ORDERED: ACETAMINOPHEN 1000 MG/100 ML BAG IVPB ONE (09:40)
[2023-07-24] MEDS ORDERED: SODIUM CHLORIDE 1,000 ML IV STA (09:43)
[2023-07-24 09:48] LABS: HCG,QUALITATIVE URINE Positive
[2023-07-24] MEDS ORDERED: ONDANSETRON 4 MG/2 ML VIAL ONE (09:50)
[2023-07-24] MEDS ORDERED: ACETAMINOPHEN INJECTION 100 ML IVPB ONE (09:51)
[2023-07-24] MEDS ORDERED: MAG HYDROX/AL HYDROX/SIMETH 30 ML UNIT-DOSE CUP ONE (09:51)
[2023-07-24 09:54] LABS: HEMATOCRIT 40.9 % (32.4-45.2); MCH 33.1 pg (25.7-33.7); MCHC 34.2 g/dl (32.0-36.0); MEAN CELL VOLUME 96.9 fl (80-96); MEAN PLT VOLUME 9.1 fl (7.5-11.1); PLATELET COUNT 259.4 10^3/uL (134-434); RBC 4.22 10^6/uL (3.60-5.2); RDW 13.1 % (11.6-15.6); WHITE BLOOD COUNT 5.8 10^3/uL (4.0-10.8)
[2023-07-24 10:05] LABS: URINE MUCUS FEW
[2023-07-24] MEDS ORDERED: Pregnancy Control Solution IV ONE (10:15)
[2023-07-24 10:21] LABS: ALBUMIN 4.4 g/dl (3.4-5.0); BILIRUBIN,TOTAL 1.2 mg/dl (0.2-1); CALCIUM 9.1 mg/dl (8.5-10.1); CREATININE 0.8 mg/dl (0.6-1.3); POTASSIUM 3.9 mmol/L (3.5-5.1); TOT PROT 8.2 g/dl (6.4-8.2)
== END 2023-07-24 13:05 | disposition home or self-care (01) ==
LOC: FER 09:18
PROC: 3E033GC Introduction of Other Therapeutic Substance into Peripheral Vein, Percutaneous Approach (ICD-10-PCS; principal; 2023-07-24)
PROC: 3E033NZ Introduction of Analgesics, Hypnotics, Sedatives into Peripheral Vein, Percutaneous Approach (ICD-10-PCS; 2023-07-24)
PROC: 3E033GC Introduction of Other Therapeutic Substance into Peripheral Vein, Percutaneous Approach (ICD-10-PCS; 2023-07-24)
PROC: 3E0337Z Introduction of Electrolytic and Water Balance Substance into Peripheral Vein, Percutaneous Approach (ICD-10-PCS; 2023-07-24)
DX: O21.9 Vomiting of pregnancy, unspecified (principal); O26.891 Other specified pregnancy related conditions, first trimester; R10.13 Epigastric pain; R19.7 Diarrhea, unspecified; O99.611 Diseases of the digestive system complicating pregnancy, first trimester; A08.4 Viral intestinal infection, unspecified; Z3A.01 Less than 8 weeks gestation of pregnancy; Z20.822 Contact with and (suspected) exposure to COVID-19
CPT/HCPCS: 0241U-QW; 36415; 80053; 81003; 81015; 83690; 83735; 84702; 84703; 85027; 87086; 99284-25

== ENCOUNTER 2023-10-08 10:28 | Emergency (ER) | payer OTHER ==
[2023-10-08 10:31] VITALS: BP 113/74; PULSE 79; RESP 18; TEMP 98.2; BMI 11.9
[2023-10-08 11:04] LABS: EPI CELLS 13 /uL (0-25.1); HYALINE CASTS 0 /uL (0-3.1); PH,URINE 6.5 (5.0-8.0); URINE APPEARANCE CLEAR; URINE BACTERIA 46 /uL (0-1359); URINE BILIRUBIN NEGATIVE (NEGATIVE); URINE COLOR YELLOW; URINE GLUCOSE (UA) NEGATIVE (NEGATIVE); URINE KETONE NEGATIVE (NEGATIVE); URINE LEUK ESTERASE TRACE (NEGATIVE); URINE NITRITE NEGATIVE (NEGATIVE); URINE PROTEIN NEGATIVE (NEGATIVE); URINE RBC 18 /uL (0-23.9); URINE UROBILINOGEN 0.2 mg/dL (0.2-1.0); URINE WBC 54 /uL (0-25.8)
[2023-10-08 11:07] LABS: HCG,QUALITATIVE URINE Negative
[2023-10-08] MEDS ORDERED: metroNIDAZOLE 250 MG TABLET ONE (11:35)
[2023-10-08] MEDS: metroNIDAZOLE 500 MG TABLET PO ONE (11:39)
== END 2023-10-08 11:41 | disposition home or self-care (01) ==
LOC: JERFT 10:28
DX: R30.0 Dysuria (principal); L29.2 Pruritus vulvae; N89.8 Other specified noninflammatory disorders of vagina; N76.0 Acute vaginitis
CPT/HCPCS: 36415; 81003; 84703; 87070; 87077; 87086; 87205; 87491; 87591; 87661; 99283-25

== ENCOUNTER 2023-12-04 09:03 | Emergency (ER) | payer OTHER ==
[2023-12-04 09:10] VITALS: BP 109/66; PULSE 75; RESP 18; TEMP 98.1; BMI 29.9
[2023-12-04] MEDS ORDERED: AZITHROMYCIN 500 MG TABLET ONE (09:23)
[2023-12-04] MEDS ORDERED: ACETAMINOPHEN 500 MG TABLET (FP) ONE (09:23)
[2023-12-04] MEDS: ACETAMINOPHEN 500 MG TABLET (FP) PO ONE (09:25)
[2023-12-04] MEDS: AZITHROMYCIN 250 MG TABLET PO ONE (09:25)
[2023-12-04 10:06] LABS: THROAT:GRP A STREP DETECTED (NOTDETECTED)
== END 2023-12-04 09:32 | disposition home or self-care (01) ==
LOC: JER 09:03
DX: J02.9 Acute pharyngitis, unspecified (principal); H92.01 Otalgia, right ear; Z20.822 Contact with and (suspected) exposure to COVID-19
CPT/HCPCS: 0241U-QW; 87651; 99283-25

== ENCOUNTER 2024-04-17 19:15 | Emergency (ER) | payer OTHER ==
[2024-04-17 19:23] VITALS: BP 114/74; PULSE 84; RESP 18; TEMP 98; BMI 30.5
== END 2024-04-17 20:09 | disposition home or self-care (01) ==
LOC: JERFT 19:15
DX: N76.0 Acute vaginitis (principal)
CPT/HCPCS: 99283-25

== ENCOUNTER 2024-04-28 08:45 | Emergency (ER) | payer OTHER ==
[2024-04-28 08:59] VITALS: BP 105/70; PULSE 64; RESP 20; TEMP 98.4; BMI 29.9
[2024-04-28 09:26] LABS: HCG,QUALITATIVE URINE Negative
== END 2024-04-28 11:03 | disposition home or self-care (01) ==
LOC: FER 08:45
DX: N89.8 Other specified noninflammatory disorders of vagina (principal)
CPT/HCPCS: 81003; 81015; 84703; 99283-25

== ENCOUNTER 2024-05-05 11:43 | Emergency (ER) | payer OTHER ==
[2024-05-05 11:58] VITALS: BP 115/75; PULSE 73; RESP 16; TEMP 99.3; BMI 29.9
[2024-05-05 12:12] LABS: HCG,QUALITATIVE URINE Negative
== END 2024-05-05 12:28 | disposition home or self-care (01) ==
LOC: FER 11:43
DX: R35.0 Frequency of micturition (principal); R30.0 Dysuria; N89.8 Other specified noninflammatory disorders of vagina
CPT/HCPCS: 81003; 84703; 87086; 87186; 99283-25

== ENCOUNTER 2024-06-23 09:28 | Emergency (ER) | payer OTHER ==
[2024-06-23 09:48] VITALS: BP 110/74; PULSE 79; RESP 18; TEMP 98.3; BMI 29.8
[2024-06-23 10:30] LABS: PH,URINE 6.5 (5.0-8.0); URINE APPEARANCE CLEAR; URINE BILIRUBIN NEGATIVE (NEGATIVE); URINE COLOR YELLOW; URINE GLUCOSE (UA) NEGATIVE (NEGATIVE); URINE KETONE NEGATIVE (NEGATIVE); URINE LEUK ESTERASE NEGATIVE (NEGATIVE); URINE NITRITE NEGATIVE (NEGATIVE); URINE PROTEIN NEGATIVE (NEGATIVE)
[2024-06-23] MEDS ORDERED: FLUCONAZOLE 150 MG TABLET PO ONE (10:42)
[2024-06-23] MEDS: FLUCONAZOLE 150 MG TABLET PO ONE (10:43)
== END 2024-06-23 10:55 | disposition home or self-care (01) ==
LOC: JER 09:28 → JERFT 09:28
DX: B37.9 Candidiasis, unspecified (principal); M54.9 Dorsalgia, unspecified
CPT/HCPCS: 36415; 81003; 84703; 87086; 87491; 87591; 99283-25

== ENCOUNTER 2024-06-27 07:44 | Emergency (ER) | payer OTHER ==
[2024-06-27 08:39] VITALS: BP 111/74; PULSE 81; RESP 17; TEMP 98.8; BMI 29.8
[2024-06-27 09:09] LABS: THROAT:GRP A STREP DETECTED (NOTDETECTED)
== END 2024-06-27 10:06 | disposition home or self-care (01) ==
LOC: JERFT 07:44
DX: J02.0 Streptococcal pharyngitis (principal); Z20.822 Contact with and (suspected) exposure to COVID-19
CPT/HCPCS: 0241U-QW; 87651; 99283-25

== ENCOUNTER 2024-08-09 16:47 | Emergency (ER) | payer OTHER ==
[2024-08-09 16:55] VITALS: BP 118/68; PULSE 95; RESP 18; TEMP 98.9; BMI 29.8
[2024-08-09] MEDS ORDERED: ACETAMINOPHEN 325 MG TABLET (FP) ONE ×2 (18:04→18:05)
[2024-08-09] MEDS: ACETAMINOPHEN 500 MG TABLET (FP) PO ONE (18:06)
[2024-08-09 18:51] LABS: THROAT:GRP A STREP DETECTED (NOTDETECTED)
== END 2024-08-09 19:30 | disposition home or self-care (01) ==
LOC: JER 16:47 → JERFT 16:47
DX: J02.0 Streptococcal pharyngitis (principal); J10.1 Influenza due to other identified influenza virus with other respiratory manifestations; R09.81 Nasal congestion; H92.01 Otalgia, right ear; Z20.822 Contact with and (suspected) exposure to COVID-19
CPT/HCPCS: 0241U-QW; 84703; 87651; 99283-25

== ENCOUNTER 2024-08-17 22:12 | Emergency (ER) | payer OTHER ==
[2024-08-17 22:33] VITALS: BP 103/69; PULSE 75; RESP 18; TEMP 98.8; BMI 29.9
== END 2024-08-18 01:27 | disposition home or self-care (01) ==
LOC: JER 22:12 → JERFT 22:12 → JER 08-18 01:27
DX: J40 Bronchitis, not specified as acute or chronic (principal)
CPT/HCPCS: 99283-25

== ENCOUNTER 2024-09-06 16:50 | Emergency (ER) | payer OTHER ==
[2024-09-06 17:00] VITALS: BP 105/71; PULSE 65; RESP 18; TEMP 98.8; BMI 28.9
[2024-09-06] MEDS ORDERED: ACETAMINOPHEN 500 MG TABLET (FP) ONE (17:51)
[2024-09-06] MEDS: ACETAMINOPHEN 500 MG TABLET (FP) PO ONE (17:53)
[2024-09-06 18:18] LABS: HCG,QUALITATIVE URINE Negative
[2024-09-06 18:48] LABS: PH,URINE 5.5 (5.0-8.0); URINE APPEARANCE CLOUDY; URINE BILIRUBIN NEGATIVE (NEGATIVE); URINE COLOR YELLOW; URINE GLUCOSE (UA) NEGATIVE (NEGATIVE); URINE KETONE TRACE (NEGATIVE); URINE LEUK ESTERASE NEGATIVE (NEGATIVE); URINE NITRITE NEGATIVE (NEGATIVE); URINE PROTEIN TRACE (NEGATIVE); URINE UROBILINOGEN 0.2 mg/dL (0.2-1.0)
== END 2024-09-06 19:12 | disposition home or self-care (01) ==
LOC: JER 16:50
DX: R51.9 Headache, unspecified (principal); M54.50 Low back pain, unspecified; R10.33 Periumbilical pain; Z20.822 Contact with and (suspected) exposure to COVID-19
CPT/HCPCS: 0241U-QW; 81003; 84703; 87086; 99283-25

== ENCOUNTER 2025-02-21 22:16 | Emergency (ER) | payer OTHER ==
[2025-02-21 22:21] VITALS: BP 119/76; PULSE 71; RESP 18; TEMP 98.4; BMI 29.6
[2025-02-21] MEDS ORDERED: IBUPROFEN 600 MG TABLET (FP) PO ONE (22:36)
[2025-02-21] MEDS: IBUPROFEN 600 MG TABLET (FP) PO ONE (22:47)
[2025-02-21] MEDS ORDERED: AZITHROMYCIN 500 MG TABLET ONE (23:20)
[2025-02-21] MEDS: AZITHROMYCIN 500 MG TABLET PO ONE (23:24)
== END 2025-02-21 23:30 | disposition home or self-care (01) ==
LOC: JERFT 22:16 → JER 22:16
DX: J02.0 Streptococcal pharyngitis (principal); R09.81 Nasal congestion; H92.02 Otalgia, left ear
CPT/HCPCS: 87637-QW; 87651; 99283-25